=== PATIENT | female | born 1995 | race Hispanic/Latino ===

== ENCOUNTER 2018-03-23 00:32 | Day surgery (SDC) | payer OTHER ==
[2018-03-23 01:26] VITALS: BP 111/64; TEMP 97.8
[2018-03-23 01:29] VITALS: BMI 23.9
[2018-03-23 02:11] LABS: Bilirubin Negative (Negative); Blood, Urine Negative (Negative); Clarity CLEAR (Clear); Glucose, Urine (Dipstick) Negative (Negative); Leukocyte Negative (Negative); Nitrite Negative (Negative); Protein, Urine (Dipstick) Trace mg/dL (Neg-Trace); Specific Gravity, Urine 1.025 (1.002-1.036); Urobilinogen 0.2 mg/dL (0.2-1.0)
--- NOTE | 2018-03-23 03:12 | PDOC.LDHP ---
Labor and Delivery H&P Chief complaint: abdominal pain HPI: 23 y/o at 23w5d, patient of Dr. Hudson, presents with cramping and constant low back pain. Denies VB, LOF, or decreased FM. Has tried heating pad with no relief. ROS neg for HEENT, CV, pulm, GI, , neuro, psych, skin, musculoskeletal, or constitutional symptoms other than mentioned above. OB History Details: 1 prior term Current complications: none Past Medical History: None Current medications: pre- vitamins Previous surgical history: none Allergies/Adverse Reactions: Allergies Allergy/AdvReac Type Severity Reaction Status Date / Time No Known Allergies Allergy Verified 09/25/15 17:37 Social history: none - Physical Exam Vital signs reviewed and normal: yes General: NAD, resting Lungs: nonlabored breathing Abdomen: gravid Extremeties: no edema FHT: category 1 (125, mod variability, + accels, no decels) [place] contractions every: irritability - Vaginal Exam cm dilated: 0 Effacement: 0% Station: -3 - Assessment 23 y/o at 23w5d with no e/o PTL. status reassuring with reactive NST. UA wnl. FFN neg. - Plan -: D/c home with precautions. Advised to keep all appointments.
[2018-03-23] MEDS ORDERED: Lactated Ringer's 1,000 ML IV SCH (03:15)
[2018-03-23] MEDS ORDERED: Acetaminophen 500 MG TAB PO SCH (03:15)
[2018-03-23 04:29] LABS: FFN Internal QC Analyzer PASS (PASS); FFN Internal QC Cassette PASS (PASS); Fetal Fibronectin Negative (Negative)
== END 2018-03-23 05:15 | disposition home or self-care (01) ==
LOC: L&D/OP 00:32
PROVIDERS: ATTEND Obstetrics & Gynecology
DX: O99.89 Other specified diseases and conditions complicating pregnancy, childbirth and the puerperium (principal); R10.9 Unspecified abdominal pain; M54.5 Low back pain; Z3A.23 23 weeks gestation of pregnancy
CPT/HCPCS: 51701; 81003; 82731; 96360; 99284

== ENCOUNTER 2018-08-09 14:27 | Emergency (ER) | payer SELFPAY | END 2018-08-09 14:54 | disposition home or self-care (01) | LOC: ERS 14:27 | DX: L01.00 Impetigo, unspecified (principal) | CPT/HCPCS: 99282 ==

== ENCOUNTER 2018-09-02 16:06 | Emergency (ER) | payer SELFPAY | END 2018-09-02 16:33 | disposition home or self-care (01) | LOC: ERS 16:06 | DX: L01.00 Impetigo, unspecified (principal) | CPT/HCPCS: 99282 ==

== ENCOUNTER 2019-07-03 10:38 | Outpatient (CLI) | payer OTHER ==
--- NOTE | 2019-07-03 11:14 | ULT ---
EXAM: OB ultrasound COMPARISON: None HISTORY: female with unsure dates. TECHNIQUE: Multiplanar grayscale and color Doppler images were obtained in a transabdominal ult rasound. FINDINGS: There is a single live intrauterine with heart rate of 155 bpm. Estimated weight is 104 g. Average age of the fetus based off today's examination is 15 weeks 1 day. BPD 3.03 cm -- 15 weeks 4 days HC 10.80 cm -- 15 weeks 2 days AC 9.02 cm -- 15 weeks 2 days FL 1.36 cm -- 14 weeks 1 day The placenta is posterior/fundal in location without focal abnormality. NICOLE is subjectively within no rmal limits. The cervix is normal in length. There is no evidence of placenta previa. IMPRESSION: Single live intrauterine with estimated age of 15 weeks 1 day.
== END 2019-07-03 10:39 | disposition home or self-care (01) ==
LOC: BICULT 10:38
DX: Z34.02 Encounter for supervision of normal first pregnancy, second trimester (principal); Z3A.15 15 weeks gestation of pregnancy
CPT/HCPCS: 76815

== ENCOUNTER 2019-07-15 20:14 | Emergency (ER) | payer OTHER ==
[2019-07-15] MEDS ORDERED: Morphine 4 MG/ML VIAL ONE (21:18)
[2019-07-15] MEDS ORDERED: Ondansetron PF 4 MG/2 ML Vial ONE (21:18)
[2019-07-15 21:23] LABS: #Lymphocytes 2.8 thou/uL (1.20-3.40); #Monocytes 0.6 thou/uL (0.11-0.59); %Basophils 0.2 % (0.0-1.0); %Eosinophils 0.4 % (0.0-10.0); %Lymphocytes 26.9 % (21.0-51.0); %Monocytes 5.3 % (0.0-10.0); %Neutrophils 67.2 % (42.0-75.0); Mean Corpuscular Hemoglobin 29.9 pg (27.0-31.0); Mean Corpuscular Volume 85.5 fL (78.0-98.0); Mean Platelet Volume 7.3 fL (7.4-10.4); Platelet Count 256 thou/uL (130-400); RBC Distribution Width 11.4 % (11.5-14.5); Red Blood Cell (RBC) Count 4.03 mill/uL (4.20-5.40); White Blood Cell (WBC) Count 10.3 thou/uL (4.8-10.8)
[2019-07-15 21:45] LABS: ALT (SGPT) Less than 7 U/L (8-55); AST (SGOT) 11 U/L (5-34); Alkaline Phosphatase 73 U/L (40-110); Anion Gap 10 mmol/L (10-20); BUN (Urea Nitrogen) 8 mg/dL (7.0-18.7); Bilirubin, Total 0.4 mg/dL (0.2-1.2); Calc. Creatinine Clearance 0 mL/min (70-130); Calcium 8.8 mg/dL (7.8-10.44); Carbon Dioxide 21 mmol/L (22-29); Chloride 108 mmol/L (98-107); Estimated GFR-MDRD Greater than 90; Globulin 2.9 g/dL (2.4-3.5); Glucose 85 mg/dL (70-105); Lipase 29 U/L (8-78); Potassium 3.3 mmol/L (3.5-5.1); Protein, Total 6.9 g/dL (6.0-8.3); Sodium 136 mmol/L (136-145)
[2019-07-15 22:27] LABS: Bilirubin Negative (Negative); Blood, Urine Trace (Negative); Clarity Clear (Clear); Glucose, Urine (Dipstick) Normal (Negative); Leukocyte Negative Leu/uL (Negative); Mucous/LPF 2+ LPF (<2+); Nitrite Negative (Negative); Protein, Urine (Dipstick) 10 mg/dL (Neg-Trace); RBC/HPF 0-3 HPF (0-3); Squamous Epithelial 0-3 HPF (0-3); Urobilinogen Normal mg/dL (Less than 2); WBC/HPF 0-3 HPF (0-3)
[2019-07-15 22:31] LABS: Bacteria/HPF None Seen HPF (None Seen)
--- NOTE | 2019-07-15 22:45 | ULT ---
OB ULTRASOUND: History: Pain. Question abruption. FINDINGS: Ultrasound reveals a viable intrauterine . Gestational age by ultrasound is 17 weeks 1 day. Biometry measurements are consistent. heart rate: 155 Placenta: To the left. Placenta appears unremarkable. There is no evidence of placenta abruption. The fetus is transverse position. Amniotic fluid volume appears within normal range. Cervical length: 4.23 cm The left maternal ovary was identified and appears unremarkable. It shows normal blood flow with colo r doppler and spectral analysis. IMPRESSION: An 17 week 1 day gestation by ultrasound measurement. Placenta is to the left. There is no abnormalit y identified. POS: OFF
== END 2019-07-15 23:37 | disposition home or self-care (01) ==
LOC: ERS 20:14
DX: O99.89 Other specified diseases and conditions complicating pregnancy, childbirth and the puerperium (principal); R10.32 Left lower quadrant pain; Z3A.17 17 weeks gestation of pregnancy
CPT/HCPCS: 36416; 76815; 80053; 81003; 81015; 83690; 85025; 87086; 96361; 96374; 96375; J2270; J2405

== ENCOUNTER 2019-08-10 09:33 | Outpatient (CLI) | payer OTHER ==
--- NOTE | 2019-08-10 15:20 | ULT ---
US OB Complete STANDARD History: Z 34.82 encounter for supervision of other normal in second trimester Comparison: OB ultrasound July 15, 2019 Findings: Real-time grayscale, color, and spectral analysis of the gravid uterus was performed transa bdominal approach. A source is closed measuring 3.4 cm in length. No placenta previa. Placenta is posterior. Normal amniotic fluid. Single viable intrauterine with average ultrasound age 20 week 2 day with estimated date of delivery December 26, 2019 weight is 12 ounces, 2nd percentile. Biometry: Biparietal diameter: 4.73 cm, 20 week 3 day Head circumference: 17.67 cm, 20 week 2 day Abdominal circumference: 14.83 cm, 20 week 1 day Femur length: 3.2 cm, 20 weeks 0 days Heart rate documented at 139 bpm. Anatomy: The upper extremities, lower extremities, three-vessel cord, spine, kidneys, stomach, bladde r, lateral ventricles, cerebellum, cisterna magna are all normal. Impression: Intrauterine with average ultrasound age 20 week 2 day with estimated date of d elivery December 26, 2019. Estimated weight is low at 330 g, 2nd percentile.
== END 2019-08-10 09:34 | disposition home or self-care (01) ==
LOC: BICULT 09:33
PROVIDERS: ATTEND Obstetrics & Gynecology
DX: Z34.82 Encounter for supervision of other normal pregnancy, second trimester (principal); Z3A.20 20 weeks gestation of pregnancy
CPT/HCPCS: 76805

== ENCOUNTER 2019-10-27 19:32 | Day surgery (SDC) | payer OTHER ==
[2019-10-27 20:16] VITALS: BMI 23.3
[2019-10-27] MEDS ORDERED: hydrALAZINE 20 MG/ML VIAL SLOW IVP PRN (20:43)
--- NOTE | 2019-10-27 21:02 | HP ---
TIME OF EVALUATION: 2034. LOCATION: Labor and delivery bed B. This is a patient of Dr. Hudson. The patient is here with complaint of contractions at 32 weeks. HISTORY OF PRESENT ILLNESS: In brief, this is a 24-year-old , G3, P2 with 2 previous vaginal deliveries at term, who is currently 32 weeks by her EGA. She complains of decreased movement and possibly some early contractions that she describes as "tightening up." She denies vaginal bleeding or leakage of fluid or recent intercourse. She denies recent trauma. She states that the decreased movement was over the last 2 hours when previously it was normal. She also states some vaginal pressure. REVIEW OF SYSTEMS: Complete review of systems was checked and is otherwise negative unless specified in the HPI. Specifically, the patient denies GI or symptoms. PAST MEDICAL HISTORY: Negative. PAST SURGICAL HISTORY: None. OB HISTORY: Significant for two term vaginal deliveries. ALLERGIES: NONE. ON MONITORS, HEART TONES WERE REACTIVE FOR GESTATIONAL AGE WITH A NORMAL RATE. THERE ARE NO PATHOLOGICAL DECELERATIONS AND THERE IS MODERATE VARIABILITY. ON THE TOCODYNAMOMETER, THERE IS SOME SLIGHT IRRITABILITY, BUT NO REAL CONTRACTION PATTERN. INTERVENTIONS ORDERED. WE HAVE ORDERED A CATH UA WELL A TRANSVAGINAL ULTRASOUND FOR CERVICAL LENGTH. WE WILL ALSO OBTAIN AN FFN, BUT WE WILL NOT SEND IT UNLESS INDICATED BY THE FFN IF IT IS LESS THAN 2.5 CM. ASSESSMENT: This is a 24-year-old , G3, P2, with decreased movement at 32 weeks, but reassuring nonstress test. PLAN: 1. Continue nonstress test evaluation for now. 2. We will order a cath UA. 3. Transcervical vaginal length ordered and pending. Job ID: [id number] [facility]
[2019-10-27 21:17] LABS: Bacteria/HPF None Seen HPF (None Seen); Bilirubin Negative (Negative); Blood, Urine Negative (Negative); Clarity Clear (Clear); Glucose, Urine (Dipstick) Normal (Negative); Leukocyte Negative Leu/uL (Negative); Nitrite Negative (Negative); Protein, Urine (Dipstick) Negative (Neg-Trace); RBC/HPF 0-3 HPF (0-3); Squamous Epithelial 0-3 HPF (0-3); Urobilinogen Normal mg/dL (Less than 2); WBC/HPF 0-3 HPF (0-3)
[2019-10-27 21:20] LABS: Urine Culture Reflex No No
--- NOTE | 2019-10-27 22:00 | PDOC.EVN ---
Event Note - Event Note Event Note: Cervical length > 4cm UA normal Gave labor precautions and will d/c home. Pt has f/u appt with Dr. Hudson next week. Discussed with Dr. Walters
--- NOTE | 2019-10-27 22:03 | ULT ---
Ultrasound transvaginal: DATE: 10/27/2019 Time: 9:37 PM HISTORY: 24 year old female with threatened . TECHNIQUE: Endovaginal transducer used to evaluate cervix only. FINDINGS: The cervix is 4 cm in length and is closed. No evidence of placenta previa. IMPRESSION: Negative
== END 2019-10-27 22:10 | disposition home or self-care (01) ==
LOC: L&D/OP 19:32
PROVIDERS: ATTEND Family Medicine
DX: O36.8130 Decreased fetal movements, third trimester, not applicable or unspecified (principal); O47.03 False labor before 37 completed weeks of gestation, third trimester; Z3A.32 32 weeks gestation of pregnancy
CPT/HCPCS: 51701; 81001; 99282

== ENCOUNTER 2019-12-15 00:25 | Day surgery (SDC) | payer OTHER ==
[2019-12-15] MEDS ORDERED: hydrALAZINE 20 MG/ML VIAL SLOW IVP PRN (01:14)
--- NOTE | 2019-12-15 01:14 | PDOC.FPROB ---
FMR OB H&P: HPI - History of Present Illness Chief Complaint: Can't sleep Indentification: 24yo at 39.0wks History of Present Illness: 24yo at 39.0wks presents because she cannot sleep. She had her membranes stripped on Tuesday, Tuesday reports losing her mucus plug and contractions started 1x per hour. She has been unable to sleep due to pain from contractions. Has not tried taking any medications. Denies VB, LOF. Endorses FM. Primary Care Physician: Dr Hudson FMR OB H&P: Current - Care : 3 Para: 2001 Gestational age: 39.0wks Due date: 12/22/2019 - OB Labs Blood type: O RH: positive Antibody Screen: negative HIV: negative RPR: negative HepBsAg: negative Rubella: immune FMR OB H&P: History - Past Medical History PMH: Unremarkable - OB History OB History: 2 - Surgical History Sx History: Unremarkable - Social History Social History: Denies tobacco, alcohol and drug use. - Family History Family History: Denies FMR OB H&P: Medications - Current Home Medications: Medication Instructions Recorded Confirmed Type Vitamin 1 tablet PO DAILY 09/25/15 10/27/19 History Allergies/Adverse Reactions: Allergies Allergy/AdvReac Type Severity Reaction Status Date / Time No Known Allergies Allergy Verified 10/27/19 20:05 FMR OB H&P: ROS - Review of Systems General: denies: fever/chills, fatigue ENT: denies: nasal congestion Cardiovascular: denies: chest pain Respiratory: denies: cough, congestion, shortness of breath Gastrointestinal: reports: diarrhea. denies: nausea, vomiting Genitourinary (Female): reports: contractions. denies: vaginal discharge, vaginal bleeding Neurologic: denies: weakness Integumentary: denies: rash, lesions FMR OB H&P: Vital Signs - Heart Tones Baseline: 150 Variability: moderate Acceleration: present Deceleration: absent Category: category 1 [place] contractions every: Rare FMR OB H&P: Physical Exam - Physical Exam General: NAD, awake, alert and oriented HEENT: normocephalic and atraumatic, MMM, oropharynx clear Neck: trachea midline Heart: RRR, no edema General: CTAB, no respiratory distress, no wheezing Abdomen: soft, gravid, non-tender, bowel sound present Musculoskeletal: pulses present, no atrophy Neurological: no focal deficit Psychiatric: intact recent and remote memory, good judgement and insight, normal mood and affect - Pelvic Exam SVE: 1.5/60/h FMR OB H&P: A/P Disposition: 24yo at 39.0wks presents for contractions and insomnia Will give dose of Tylenol and Ambien here. Her mother is present to drive her home. Discussed side effects of the medication in detail with patient. Will write rx for 2 additional doses to get her through the weekend until she sees Dr Hudson on Tuesday. Discussion: Date/Time: 12/15/19113 This H&P was discussed with Dr. Walters who agrees with the above documentation and plan.
[2019-12-15] MEDS ORDERED: Zolpidem Tartrate 5 MG TAB PO SCH (01:30)
[2019-12-15] MEDS ORDERED: Acetaminophen 500 MG TAB PO SCH (01:30)
--- NOTE | 2019-12-15 01:36 | PDOC.EVN ---
Event Note - Event Note Event Note: OBGYN Attestation I have seen the patient at bedside. The patient is a Pt of dr Hudson. Here for "cant sleep" with irregaular CTX She is a 24 yo at 39 weeks with c/o CTX that keep her awake. She was seen recently by Dr Hudson who checked her CX and stripped membranes. No Vb, no LOF, no fevers,good FM. NST is reactive CX 1-2cm/60/-2 No evidence true labor DX: latent labor at 39 weeks OK for outpt care and has Dr hudson on Tuesday appt. OK for 5mg Ambien now and a pill for tomorrow to take prn
[2019-12-15 01:38] VITALS: BMI 24.2
[2019-12-15] MEDS ORDERED: FLU VACC QS2019-20(6MOS UP)/PF 60 MCG/0.5 ML SYRINGE IM ONE (02:00)
== END 2019-12-15 02:00 | disposition home health service (06) ==
LOC: L&D/OP 00:25
PROVIDERS: ATTEND Family Medicine
DX: O47.1 False labor at or after 37 completed weeks of gestation (principal); Z3A.39 39 weeks gestation of pregnancy
CPT/HCPCS: 99283

== ENCOUNTER 2019-12-19 04:59 | Inpatient (IN) | payer OTHER, SELFPAY ==
[2019-12-19 05:39] VITALS: BMI 25.0
[2019-12-19 05:58] LABS: Amnisure Test RUPTURE DETECTED (No Rupture)
[2019-12-19 05:59] LABS: Amnisure Internal Control QC ACCEPTABLE (ACCEPTABLE)
[2019-12-19] MEDS ORDERED: Diphenoxylate HCl/Atropine Tablet PO PRN ×2 (06:18)
[2019-12-19] MEDS ORDERED: Promethazine HCl 25 MG/ML VIAL IM PRN (06:18)
[2019-12-19] MEDS ORDERED: Lidocaine 1% (PF) 30 ML VIAL SC PRN (06:18)
[2019-12-19] MEDS ORDERED: Ondansetron PF 4 MG/2 ML Vial IVP PRN (06:18)
[2019-12-19] MEDS ORDERED: Acetaminophen 500 MG TAB PO PRN (06:18)
[2019-12-19] MEDS ORDERED: hydrALAZINE 20 MG/ML VIAL SLOW IVP PRN (06:18)
[2019-12-19] MEDS ORDERED: Misoprostol 200 MCG TAB PR PRN (06:18)
[2019-12-19] MEDS ORDERED: Carboprost 250 MCG/ML AMP IM PRN (06:18)
[2019-12-19] MEDS ORDERED: HYDROcodone/Acetaminophen 5/325 mg Tablet PO PRN ×2 (06:18)
[2019-12-19] MEDS ORDERED: Ibuprofen 800 MG TAB PO PRN (06:18)
[2019-12-19] MEDS ORDERED: Methylergonovine 0.2 MG/ML VIAL IM PRN (06:18)
[2019-12-19] MEDS ORDERED: NS / Oxytocin 40 units/1000ml 1,000 ML IV PRN (06:18)
[2019-12-19] MEDS ORDERED: NS w/ Oxytocin 10 units 500 ML IV SCH (06:30)
[2019-12-19] MEDS: Lactated Ringer's 1,000 ML IV SCH ×2 (06:55→13:59)
[2019-12-19 07:05] LABS: Hemoglobin 13.1 g/dL (12.0-16.0); RBC Distribution Width 12.7 % (11.5-14.5)
[2019-12-19 07:12] LABS: Mean Corpuscular Hemoglobin 28.3 pg (27.0-31.0); Mean Corpuscular Volume 85.7 fL (78.0-98.0); Mean Platelet Volume 8.2 fL (7.4-10.4); Platelet Count 253 thou/uL (130-400); Red Blood Cell (RBC) Count 4.62 mill/uL (4.20-5.40); White Blood Cell (WBC) Count 11.8 thou/uL (4.8-10.8)
[2019-12-19 07:47] LABS: HBSAg Index 0.17 S/CO (0-0.99); Hep B Surf Ag Non-Reactive S/CO (NonReactive)
[2019-12-19 07:53] LABS: Syphilis Antibody Nonreactive (Nonreactive); Syphilis Antibody Index 0.03 S/CO (<1.00 Non-Reactive)
[2019-12-19] MEDS: Butorphanol Tartrate 1 MG/ML VIAL SLOW IVP PRN ×3 (13:19→19:50)
[2019-12-19] MEDS ORDERED: FLU VACC QS2019-20(6MOS UP)/PF 60 MCG/0.5 ML SYRINGE IM ONE (21:00)
[2019-12-19] MEDS ORDERED: Fentanyl 4 mcg/Bup 0.1% Cadd 0 ML ONE (21:45)
--- NOTE | 2019-12-19 22:40 | PDOC.OPDEL ---
OB Operative/Delivery Note Delivery Dr/Surgeon: Breana Assist: n/a Pre-Delivery Diagnosis: ruptured membrane Procedure/Post Delivery Dx: spontaneous vaginal delivery Weeks gestation: 39 Anesthesia: none - Findings A Sex: male - 1 min: 9 - 5 min: 9 - Additional Findings/Plan Placenta delivered: spontaneous Repaired Obstetrical Laceration: none Estimated blood loss: 150cc Post delivery plan: routine recovery
[2019-12-20] MEDS ORDERED: Lanolin Ointment 7 GM TUBE TOP PRN (01:07)
[2019-12-20] MEDS ORDERED: Bisacodyl 10 MG SUPP PR PRN (01:07)
[2019-12-20] MEDS ORDERED: Benzocaine-Menthol 82.5 ML CAN TOP PRN (01:07)
[2019-12-20] MEDS ORDERED: hydrALAZINE 20 MG/ML VIAL SLOW IVP PRN (01:07)
[2019-12-20] MEDS ORDERED: Promethazine HCl 25 MG/ML VIAL IM PRN (01:07)
[2019-12-20] MEDS ORDERED: NS / Oxytocin 40 units/1000ml 1,000 ML IV SCH (01:07)
[2019-12-20] MEDS ORDERED: Milk Of Magnesia 30 ML UDCUP PO PRN (01:07)
[2019-12-20] MEDS ORDERED: Preparation H Ointment 28 GM TUBE PR PRN (01:07)
[2019-12-20] MEDS ORDERED: Ondansetron PF 4 MG/2 ML Vial IVP PRN (01:07)
[2019-12-20] MEDS ORDERED: HYDROcodone/Acetaminophen 5/325 mg Tablet PO PRN (01:07)
[2019-12-20] MEDS ORDERED: diphenhydrAMINE 25 MG CAP PO PRN (01:07)
[2019-12-20] MEDS: HYDROcodone/Acetaminophen 5/325 mg Tablet PO PRN ×3 (03:17→23:57)
[2019-12-20] MEDS: Ibuprofen 800 MG TAB PO SCH ×3 (05:21→21:20)
[2019-12-20] MEDS ORDERED: Adacel (T-DAP) 0.5 ML SYRINGE IM ONE (09:00)
[2019-12-20] MEDS: Ferrous Sulfate 325 MG TAB PO SCH ×2 (10:07→18:10)
[2019-12-20] MEDS: Docusate Calcium (SURFAK) 240 MG CAP PO SCH ×2 (10:08→21:20)
[2019-12-20] MEDS: Prenatal Vitamin 1 TAB PO SCH (10:08)
[2019-12-20] MEDS: Lactated Ringer's 1,000 ML IV SCH (14:39)
[2019-12-21] MEDS: Ibuprofen 800 MG TAB PO SCH (04:50)
[2019-12-21 08:35] VITALS: BP 112/64; TEMP 98.3
[2019-12-21] MEDS: Ferrous Sulfate 325 MG TAB PO SCH (09:51)
[2019-12-21] MEDS: Prenatal Vitamin 1 TAB PO SCH (10:04)
[2019-12-21] MEDS: Docusate Calcium (SURFAK) 240 MG CAP PO SCH (10:05)
== END 2019-12-21 13:40 | disposition home or self-care (01) | DRG 807 ==
LOC: L&D/OP 04:59 → L&D 08:09 → 3SW 12-20 01:36
PROVIDERS: ADMIT Family Medicine; ATTEND Family Medicine
PROC: 10E0XZZ Delivery of Products of Conception, External Approach (ICD-10-PCS; principal; 2019-12-19)
DX: O42.02 Full-term premature rupture of membranes, onset of labor within 24 hours of rupture (principal); Z37.0 Single live birth; Z3A.39 39 weeks gestation of pregnancy
CPT/HCPCS: 36415; 84112; 85027; 86780; 86850; 86900; 86901; 87340; 99285; J0595; J2590

== ENCOUNTER 2020-09-11 21:52 | Emergency (ER) | payer OTHER, SELFPAY ==
[2020-09-12] MEDS ORDERED: Acetaminophen 500 MG TAB ONE (00:31)
[2020-09-12 00:47] LABS: Bacteria/HPF None Seen HPF (None Seen); Bilirubin Negative (Negative); Blood, Urine 1+ (Negative); Clarity Clear (Clear); Glucose, Urine (Dipstick) Normal (Negative); Ketone, Urine Negative (Negative); Leukocyte Negative Leu/uL (Negative); Nitrite Negative (Negative); Protein, Urine (Dipstick) Negative (Neg-Trace); RBC/HPF 0-3 HPF (0-3); Specific Gravity, Urine 1.024 (1.002-1.036); Urobilinogen Normal mg/dL (Less than 2)
[2020-09-12 01:22] LABS: BHCG - Serum Negative (NEGATIVE); Pregs Control Background? CLEAR/WHITE (CLR/WHITE); Pregs Control Bar Appear? YES (CONTROL BAR)
[2020-09-12] MEDS ORDERED: Ketorolac Tromethamine 30 MG/ML VIAL ONE (01:58)
--- NOTE | 2020-09-12 08:05 | RAD ---
RADIOGRAPH CHEST 1 VIEW: DATE: 09/12/2020 HISTORY: 25-year-old female with chest pain FINDINGS: The visualized lung [place] are clear. The cardiomediastinal silhouette and hilar shadows are normal. The lateral costophrenic angles are sharp. The osseous structures appear normal. There is no pneumothorax. IMPRESSION: Negative.
== END 2020-09-12 02:23 | disposition home or self-care (01) ==
LOC: ERS 21:52
DX: R07.2 Precordial pain (principal); R10.32 Left lower quadrant pain
CPT/HCPCS: 36415; 71045; 81003; 81015; 84703; 93005; 96372; J1885

== ENCOUNTER 2021-08-12 21:57 | Emergency (ER) | payer SELFPAY ==
[2021-08-12] MEDS ORDERED: Lidocaine Viscous Sol 2% 15 ml UD Cup ONE (22:23)
[2021-08-12] MEDS ORDERED: Mag-Al 1200 mg/1200 mg/30 ML UDCUP ONE (22:23)
[2021-08-12 22:35] LABS: #Basophils 0.2 thou/uL (0.0-0.2); #Eosinphils 0.2 thou/uL (0.0-0.7); #Monocytes 0.7 thou/uL (0.11-0.59); #Neutrophils 5.9 thou/uL (1.40-6.50); %Basophils 1.3 % (0.0-1.0); %Eosinophils 1.8 % (0.0-10.0); %Monocytes 5.7 % (0.0-10.0); %Neutrophils 49.1 % (42.0-75.0); Hemoglobin 13.1 g/dL (12.0-16.0); Mean Corpuscular HGB CONC 33.6 g/dL (32.0-36.0); Mean Corpuscular Hemoglobin 29.6 pg (27.0-31.0); Mean Corpuscular Volume 88.2 fL (78.0-98.0); Mean Platelet Volume 7.7 fL (7.4-10.4); Platelet Count 334 thou/uL (130-400); RBC Distribution Width 11.3 % (11.5-14.5); Red Blood Cell (RBC) Count 4.42 mill/uL (4.20-5.40)
[2021-08-12 22:52] LABS: ALT (SGPT) 19 U/L (8-55); AST (SGOT) 26 U/L (5-34); Albumin 4.5 g/dL (3.5-5.0); Alkaline Phosphatase 101 U/L (40-110); Anion Gap 12 mmol/L (10-20); BUN (Urea Nitrogen) 17 mg/dL (7.0-18.7); Bilirubin, Total 0.6 mg/dL (0.2-1.2); Calc. Creatinine Clearance 0 mL/min (70-130); Calcium 9.7 mg/dL (7.8-10.44); Carbon Dioxide 25 mmol/L (22-29); Chloride 103 mmol/L (98-107); Globulin 3.1 g/dL (2.4-3.5); Glucose 108 mg/dL (70-105); Lipase 24 U/L (8-78); Potassium 3.7 mmol/L (3.5-5.1); Protein, Total 7.6 g/dL (6.0-8.3); Sodium 136 mmol/L (136-145)
[2021-08-12] MEDS ORDERED: Morphine 4 MG/ML VIAL ONE (22:53)
[2021-08-12 22:56] LABS: BHCG - Serum Negative (NEGATIVE); Pregs Control Background? CLEAR/WHITE (CLR/WHITE); Pregs Control Bar Appear? YES (CONTROL BAR)
[2021-08-12 22:59] LABS: Bacteria/HPF None Seen HPF (None Seen); Bilirubin Negative (Negative); Blood, Urine 2+ (Negative); Clarity Clear (Clear); Glucose, Urine (Dipstick) Normal (Negative); Ketone, Urine Negative (Negative); Leukocyte Negative Leu/uL (Negative); Nitrite Negative (Negative); Protein, Urine (Dipstick) Negative (Neg-Trace); Specific Gravity, Urine 1.029 (1.002-1.036); Squamous Epithelial 0-3 HPF (0-3); Urobilinogen Normal mg/dL (Less than 2); WBC/HPF 0-3 HPF (0-3); pH, Urine 5.5 (5.0-9.0)
== END 2021-08-13 00:52 | disposition home or self-care (01) ==
LOC: ERS 21:57
DX: K80.20 Calculus of gallbladder without cholecystitis without obstruction (principal)
CPT/HCPCS: 76705; 80053; 81003; 81015; 83690; 84703; 85025; 96374; J2270